=== PATIENT | female | born 1950 | race Caucasian/White ===

== ENCOUNTER 2020-07-05 12:25 | Emergency (ER) | payer OTHER ==
[~2020-07-05 12:25] MED LIST: DICYCLOMINE 10M10 MG PO; GABAPENTIN 100100 MG PO; HYDROCODON-ACE1 EAC4 PO; IRBESARTAN150 MG PO; MYRBETRIQ50 MG PO; NORCO 5-325 TA1 EAC1 PO; NORCO 5-325 TA1 EACH PO; OXYBUTYNIN CHLO10 MG PO; PAROXETINE 10MG10 MG PO; STAHIST AD TAB1 EACH PO; TRAVEL SICKNESS25 MG PO; VOLTAREN **OUT75 MG PO
[2020-07-05] MEDS ORDERED: AUGMENTIN 875-1 EACH PO (15:29)
[2020-07-22] MEDS ORDERED: NORCO 5/3251 EACH PO (10:05)
[2020-09-25] MEDS ORDERED: NORCO 5/3251 EACH PO (09:17)
[2020-10-06] MEDS ORDERED: DULOXETINE HCL30 MG PO (13:22)
[2020-10-31] MEDS ORDERED: CYMBALTA60 MG PO (15:08)
[2020-11-26] MEDS ORDERED: NORCO 5/3251 EACH PO (14:21)
== END 2020-07-05 16:00 | disposition home or self-care (01) ==
LOC: FER 12:25
DX: S61.411A Laceration without foreign body of right hand, initial encounter (principal); I10 Essential (primary) hypertension; W54.1XXA Struck by dog, initial encounter
CPT/HCPCS: 99283

== ENCOUNTER 2021-10-24 17:37 | Emergency (ER) | payer OTHER, MEDICARE ==
[~2021-10-24 17:37] MED LIST changes: +AUGMENTIN 875-1 EACH PO; +CYMBALTA60 MG PO; +DULOXETINE HCL30 MG PO; +NORCO 5/3251 EACH PO
== END 2021-10-24 19:32 | disposition home or self-care (01) ==
LOC: FER 17:37
DX: S81.812A Laceration without foreign body, left lower leg, initial encounter (principal); I10 Essential (primary) hypertension; Z88.1 Allergy status to other antibiotic agents; Z88.5 Allergy status to narcotic agent; W10.9XXA Fall (on) (from) unspecified stairs and steps, initial encounter; W45.8XXA Other foreign body or object entering through skin, initial encounter; Y92.009 Unspecified place in unspecified non-institutional (private) residence as the place of occurrence of the external cause
CPT/HCPCS: 73590

== ENCOUNTER 2022-01-18 15:04 | Emergency (ER) | payer OTHER ==
[~2022-01-18 15:04] MED LIST changes: +PHENERGAN25 M1 PO
== END 2022-01-18 17:56 | disposition home or self-care (01) ==
LOC: FER 15:04
DX: S50.12XA Contusion of left forearm, initial encounter (principal); S00.03XA Contusion of scalp, initial encounter; I10 Essential (primary) hypertension; Z88.2 Allergy status to sulfonamides; W01.0XXA Fall on same level from slipping, tripping and stumbling without subsequent striking against object, initial encounter; Y92.89 Other specified places as the place of occurrence of the external cause; Y99.0 Civilian activity done for income or pay
CPT/HCPCS: 73090